=== PATIENT | female | born 1955 | race Caucasian/White ===

== ENCOUNTER → 2016-07-19 | Outpatient (CLI) | payer MEDICARE ==
[~2016-07-19] MED LIST: CIPROFLOXACIN500 MG PO; EVISTA60 MG PO; FLONASE 50 MCG16 GM; LORATADINE 10MG10 M1 PO; LORTAB 5/500 501 TAB PO; MEDROL 4MG. DOSE4 MG PO; MOBIC15 MG PO; OMEPRAZOLE40 MG PO; PERCOCET1 TAB PO; RALOXIFENE HCL60 MG PO; SYNTHROID0.112 MG PO; VITAMIN D31000 IU PO; WELLBUTRIN 150150 MG PO
[2016-07-19 16:57] LABS: BUN 15 mg/dL (7-18)
[2016-07-19 16:58] LABS: GFR (ESTIMATED) 64 ML/MIN (59-)
== END ==
LOC: LAB 15:54
PROVIDERS: Internal Medicine Adolescent Medicine
DX: I10 Essential (primary) hypertension (principal)

== ENCOUNTER → 2016-11-29 | Outpatient (CLI) | payer MEDICARE ==
--- NOTE | 2016-11-30 09:21 | RADIOLOGY REPORT PS360 ---
DIG MAMM-DX UNI A/VWS-LT W/CAD, US BREAST-LT COMPLETE W/AXILLA COMPARISON: 11/14/2016 INDICATION: Follow-up abnormal mammogram ORDERING PHYSICIAN: Evans Tate MD PATIENT AGE: 61 years TECHNIQUE: Spot compression views and left breast ultrasound FINDINGS: There is a persistent 3 mm nodular opacity in the central left breast in the retroareolar region. This is better delineated on the cc view. This is well-circumscribed. Left breast ultrasound: A 3 mm hypoechoic nodules present at the 12:00 region corresponding to the mammographic abnormality. This appears to represent a small cyst. There is some minimal irregularity of the margin superiorly. No other significant anomalies evident. IMPRESSION: Mammographic abnormality appears to represent a small complex cyst BI-RADS CATEGORY: 3_Probably Benign-Short Term F/U RECOMMENDED FOLLOWUP: 6 month mammographic and sonographic follow-up of the left breast (A letter has been sent to the patient regarding results of the study.)
== END ==
LOC: RAD 13:31
DX: R92.8 Other abnormal and inconclusive findings on diagnostic imaging of breast (principal)
CPT/HCPCS: G0206-LT

== ENCOUNTER 2016-12-18 08:56 | Outpatient (CLI) | payer MEDICARE ==
[2016-12-18 09:36] VITALS: BP 145/98
== END 2016-12-18 09:49 | disposition home or self-care (01) ==
LOC: COP 08:56
DX: M85.80 Other specified disorders of bone density and structure, unspecified site (principal)
CPT/HCPCS: J0897

== ENCOUNTER → 2017-02-14 | Outpatient (CLI) | payer MEDICARE ==
--- NOTE | 2017-02-14 15:56 | RADIOLOGY REPORT PS360 ---
KNEE-3 VIEWS-RT HISTORY: Knee pain OSTEOARTHRITIS ORDERING PHYSICIAN: Sual Gallagher MD PATIENT AGE: 61 years COMPARISON: 09/14/2007 FINDINGS: No fracture or dislocation. No lytic or blastic change. Normal mineralization. There are moderate osteoarthritic changes of the medial compartment which have progressed compared to the previous exam with osteophytes along the medial compartment. Minor osteoarthritic changes are present at the patellofemoral joint. IMPRESSION: Moderate osteoarthritis of the medial compartment and mild osteoarthritis of the patellofemoral joint
== END ==
LOC: RAD 10:58 → LAB 10:58
DX: E03.9 Hypothyroidism, unspecified (principal); R53.1 Weakness; M17.11 Unilateral primary osteoarthritis, right knee; Z79.899 Other long term (current) drug therapy